=== PATIENT | female | born 1970 | race Caucasian/White ===

== ENCOUNTER 2017-05-05 12:25 | Emergency (ER) | payer BC | END 2017-05-05 12:49 | LOC: SCSER 12:25 | DX: Z53.21 Procedure and treatment not carried out due to patient leaving prior to being seen by health care provider (principal) ==

== ENCOUNTER 2017-08-20 09:35 | Outpatient (CLI) | payer OTHER | END 2017-08-20 09:36 | disposition home or self-care (01) | LOC: BICMAMMO 09:35 | PROVIDERS: ATTEND Obstetrics & Gynecology | DX: Z12.31 Encounter for screening mammogram for malignant neoplasm of breast (principal); Z98.82 Breast implant status | CPT/HCPCS: 77063; 77067 ==

== ENCOUNTER 2018-12-10 08:34 | Outpatient (CLI) | payer BC, OTHER ==
--- NOTE | 2018-12-10 09:09 | MMO ---
Bilateral MAMMO Bilat Screen [facility]. CLINICAL HISTORY: Patient is 48 years old and is seen for screening. The patient has no family history of breast cancer. The patient has no personal history of cancer. The patient has a history of bilateral Implants in 2003. VIEWS: The views performed were: bilateral craniocaudal; bilateral mediolateral oblique; and bilateral Implant displaced with tomosynthesis. FILMS COMPARED: The present examination has been compared to prior imaging studies performed at [facility] on 07/19/2015, 08/17/2016 and 08/20/2017, and at [facility] on 04/29/2003. MAMMOGRAM FINDINGS: The breasts are heterogeneously dense, which could obscure a lesion on mammography. Finding 1: Normal implants are present. Finding 2: There are stable benign appearing calcifications seen in the right breast. There are no suspicious masses, suspicious calcifications, or new areas of architectural distortion. IMPRESSION: THERE IS NO MAMMOGRAPHIC EVIDENCE OF MALIGNANCY. A ROUTINE FOLLOW-UP MAMMOGRAM IN 1 YEAR IS RECOMMENDED. THE RESULTS OF THIS EXAM WERE SENT TO THE PATIENT. ACR BI-RADS Category 2 - Benign finding MAMMOGRAPHY NOTE: 1. A negative mammogram report should not delay a biopsy if a dominant of clinically suspicious mass is present. 2. Approximately 10% to 15% of breast cancers are not detected by mammography. 3. Adenosis and dense breasts may obscure an underlying neoplasm. Reported by: RADHIKA PENALOZA MD Electonically Signed: [id number]
== END 2018-12-10 08:35 | disposition home or self-care (01) ==
LOC: BICMAMMO 08:34
PROVIDERS: ATTEND Obstetrics & Gynecology
DX: Z12.31 Encounter for screening mammogram for malignant neoplasm of breast (principal); Z98.82 Breast implant status
CPT/HCPCS: 77063; 77067

== ENCOUNTER 2019-02-18 14:41 | Outpatient (CLI) | payer BC ==
[~2019-02-18 14:41] MED LIST: Gadobenate Dimeglumine 529 MG/1 ML (20ML VIAL) ONE
--- NOTE | 2019-02-18 16:23 | MRI ---
MRI ABDOMEN WITH AND WITHOUT IV CONTRAST: 02/18/19 HISTORY: Hepatitis, autoimmune. COMPARISON: None. FINDINGS: The patient is post cholecystectomy. There are bilateral breast implants. There is irregularity of the surface of the liver likely due to cirrhosis. There is a 9 mm T2 hyperin tense lesion in the right lobe of the liver with filling on delayed postcontrast images consistent wi th hemangioma. The spleen, pancreas, adrenal glands and kidneys are normal. No free fluid or lymphad enopathy seen in the abdomen. There is no evidence of aneurysmal dilatation of the abdominal aorta. T he bone marrow signal is normal. IMPRESSION: Findings suspicious for cirrhosis of the liver with small hemangioma. POS: [facility]
== END 2019-02-18 14:42 | disposition home or self-care (01) ==
LOC: BICMRI 14:41
PROVIDERS: ATTEND Internal Medicine Gastroenterology
DX: K21.9 Gastro-esophageal reflux disease without esophagitis (principal); K75.4 Autoimmune hepatitis; R93.2 Abnormal findings on diagnostic imaging of liver and biliary tract; K59.00 Constipation, unspecified
CPT/HCPCS: 74183; A9577

== ENCOUNTER 2025-03-12 12:21 | Outpatient (CLI) | payer OTHER, SELFPAY | END 2025-03-12 12:22 | disposition home or self-care (01) | LOC: BICMAMMO 12:21 | PROVIDERS: ATTEND Family Medicine | DX: Z12.31 Encounter for screening mammogram for malignant neoplasm of breast (principal); Z98.82 Breast implant status | CPT/HCPCS: 77063; 77067 ==